=== PATIENT | male | born 1995 | race Caucasian/White ===

== ENCOUNTER 2017-05-07 11:58 | Day surgery (SDC) | payer MEDICAID, OTHER ==
[~2017-05-07] VITALS: Ht 182.9 cm; Wt 114.0 kg
[2017-05-07 13:14] VITALS: BP 165/95; PULSE 92; RESP 18; Ht 182.9 cm; Wt 114.0 kg
--- NOTE | 2017-05-07 14:32 | HPN ---
Date/Time of Note Date/Time of Note DATE: 05/07/17 TIME: 14:32 Interval H&P Admission Note Pt. seen H&P reviewed: No system changes JODI BADILLO MD May 07, 2017 14:32
[2017-05-07] MEDS ORDERED: METOCLOPRAMIDE 10 MG INJ IV PRN ×2 (15:30→19:30)
[2017-05-07] MEDS ORDERED: ONDANSETRON 4 MG INJ IV PRN ×2 (15:30→19:30)
[2017-05-07] MEDS ORDERED: FENTAnyl 50 MCG/ML VIAL IV PRN ×4 (15:30→19:30)
[2017-05-07] MEDS ORDERED: MEPERIDINE 25 MG INJ IV PRN ×2 (15:30→19:30)
[2017-05-07] MEDS ORDERED: DIPHENHYDRAMINE 50 MG INJ IV PRN ×2 (15:30→19:30)
[2017-05-07] MEDS ORDERED: HYDROmorphONE (0.2 MG/ML) 10ML SYG IV PRN ×4 (15:30→19:30)
--- NOTE | 2017-05-07 16:40 | OPR ---
Date/Time of Note Date/Time of Note DATE: 05/07/17 TIME: 16:37 Operative Report Preoperative Diagnosis wrist flexion contracture . crebral palsy tight fcu Postoperative Diagnosis same Operation/Procedure Performed fcu to ecrl transfer Surgeon: JODI BADILLO MD registrar assistant: EVANGELINA JIMENEZ Anesthesia Type: general Estimated Blood Loss: 0 - 10 ml's Transfusion Required: no Specimen: none Complications: no Complications none JODI BADILLO MD May 07, 2017 16:40
[2017-05-07] MEDS ORDERED: MIDAZOLAM 1 MG/ML 2 ML INJ ONE (17:14)
[2017-05-07] MEDS ORDERED: ROPIVACAINE 0.5 % 30 ML VIAL ONE (17:16)
[2017-05-07] MEDS ORDERED: FENTAnyl 50 MCG/ML VIAL ONE (17:20)
[2017-05-07] MEDS ORDERED: LIDOCAINE 2% (SDV) 5 ML INJ ONE (17:51)
[2017-05-07] MEDS ORDERED: CEFAZOLIN 1 GM INJ ONE (17:52)
[2017-05-07] MEDS ORDERED: SUGAMMADEX SODIUM 200 MG/2 ML VIAL IV ONE (17:52)
[2017-05-07] MEDS ORDERED: ROCURONIUM 50 MG INJ ONE (17:52)
[2017-05-07] MEDS ORDERED: PROPOFOL 20 ML ONE (17:52)
[2017-05-07] MEDS ORDERED: SUCCINYLCHOLINE CHLORIDE 100 MG/5 ML SYG IV ONE (17:52)
--- NOTE | 2017-05-07 18:46 | OPR ---
Date/Time of Note Date/Time of Note DATE: 05/07/17 TIME: 18:44 Operative Report Preoperative Diagnosis interosseos \cyst capitate rt wrist Postoperative Diagnosis same Operation/Procedure Performed arthrotomy , osteotomy of capitate curretage of cyst Surgeon: JODI BADILLO MD diploma medical assistant: EVANGELINA JIMENEZ Anesthesia Type: general Estimated Blood Loss: 0 - 10 ml's Transfusion Required: no Specimen: none Grafts/Implants chem ostetic bone void filler Complications: no JODI BADILLO MD May 07, 2017 18:46
[2017-05-07 18:59] VITALS: BP 154/78; PULSE 112; RESP 14
[2017-05-07 19:04] VITALS: BP 153/71; PULSE 112; RESP 14
[2017-05-07 19:09] VITALS: BP 156/80; PULSE 110; RESP 14
[2017-05-07 19:14] VITALS: BP 148/76; PULSE 110; RESP 14
[2017-05-07 19:19] VITALS: BP 151/86; PULSE 112; RESP 14
[2017-05-07] MEDS ORDERED: OXYCODONE/ACETAMINOPHEN (5/325) TAB PO PRN ×2 (19:30)
[2017-05-07] MEDS ORDERED: OXYCODONE/ACETAMINOPHEN (5/325) TAB PO ONE (19:30)
--- NOTE | 2017-05-07 23:43 | OPR ---
DATE OF OPERATION: 05/07/2017 PREOPERATIVE DIAGNOSIS: 1. Disorganized capitate right wrist. 2. Intraosseous ganglion right wrist. POSTOPERATIVE DIAGNOSIS: 1. Disorganized capitate right wrist. 2. Intraosseous ganglion right wrist. OPERATION PERFORMED: Right wrist arthrotomy, ROHO, into the capitate, curettage to the cyst, filling the cyst with a bone void filler, in this case Erik-Ostetic bone void filler material. SURGEON: Crow Dueñas MD DUAL HOSE CEMENTER: Staff. STOCKROOM KEEPER: Darrick ANESTHESIA: General anesthsia _, supraclavicular block by the anesthesiologist. SURGICAL PAUSE: I examined the patient in the preop holding area, confirmed the operative procedure and plan, karthikeyan in the surgical incision, showed the drawing surgical incision to the patient, showed it to the mother, confirmed the operative procedure and plan. Informed consent: In the office at the time we scheduled the operative procedure, we talked about the risks and benefits of the surgery, talked about operative mortality, wound infection, nerve injury, good results, bad results, potential complications. The patient signed a note confirming that conversation. OPERATIVE PROCEDURE: The patient taken to surgery, anesthetized as above. Sterile prep and drape performed. Longitudinal incision at the end of the dorsum of the wrist and the carpus exposed. I expected to see a defect on the dorsum but in fact the dorsal of the wrist was fairly normal. We took operative x- rays, confirmed the cyst of the capitate and made a large drill hole in the capitate . and entered__ this large intraosseous bone cyst which we curettaged out. We filled it with Erik-Ostetic Bone Void Filler. Intraoperative x-rays confirmed the placement of a filler. The wound was closed in layers with closing the capsule with 2-0 Vicryl< the retinaculum with 2-0 Vicryl and the subcuticular with Vicryl rapid suture. A bulky dressing was applied. The operative procedure was around a half hour. Discharge medication hydrocodone/acetominophen, Keflex follow up one week Early motion will be started. Dictated By: rCow Dueñas MD /zoltan/cintia /Document#: [id number] NORMA
--- NOTE | 2017-05-08 09:08 | RADRPT ---
PROCEDURE: XR Hand. CLINICAL INDICATION: INTRAOP#1//OR#1//ISE TECHNIQUE: A single limited intraoperative view of the right hand is submitted COMPARISON: No prior studies are available for comparison. FINDINGS: Evaluation is limited by single limited nonstandard projection and overlying surgical instruments. Surgical clamp projects over the wrist and hand. A surgical pain or needle projects over the third m etacarpal with proximal portion projecting over the third metacarpal capitate joint space. Lucent lesions within the capitate are nonspecific, but may represent bone cysts. No obvious fracture or dislocation is seen on this limited single view. IMPRESSION: Limited single intraoperative view of the right hand, as described above. Please refer to the operat shadi report for additional details. RPTAT: EE Physician José Date Time Electronically viewed and signed by Physician José on 05/08/2017 09:07 EVETTE/
--- NOTE | 2017-05-08 09:45 | RADRPT ---
PROCEDURE: XR Right indexfinger CLINICAL INDICATION: INTRAOP#2 TECHNIQUE: A single limited intraoperative view of the right hand is submitted COMPARISON: Intraoperative right hand x-ray 05/07/2017 at 06:05 p.m. FINDINGS: The previously seen overlying surgical clamp and surgical pin or needle had been removed. There is new increased density in the region of the previously identified cystic lesion within the c apitate. Increased density is also seen projecting over the metacarpal capitate joint space. No displaced fracture or dislocation is seen on this limited single view. IMPRESSION: Limited single intraoperative view of the right hand, as described above. Please refer to the opera tive report for additional details. RPTAT: EE Physician José Date Time Electronically viewed and signed by Physician José on 05/08/2017 09:45 RC/
== END 2017-05-07 20:48 | disposition home or self-care (01) ==
LOC: SDS 11:58
PROVIDERS: ATTEND Orthopaedic Surgery Hand Surgery
DX: M85.48 Solitary bone cyst, other site (principal)
CPT/HCPCS: 25035; 73120; 88304; J0690; J2250; J2795; J3010; Z7512; Z7610; J7999